=== PATIENT | male | born 1985 | race Caucasian/White ===

== ENCOUNTER 2019-09-01 14:33 | Outpatient (CLI) | payer OTHER ==
--- NOTE | 2019-09-02 08:27 | MRI Report ---
Reason: BILATERAL HAND PAIN Procedure Date: 09/01/2019 Accession Number: [id number] / [id number] Procedure: MRI - Hand RT W/O CPT Code: Final Report FULL RESULT: EXAM: RIGHT HAND MRI WITHOUT CONTRAST EXAM DATE: 09/01/2019 03:11 PM. CLINICAL HISTORY: Bilateral hand pain dorsally for 6 months. Weakness. COMPARISON: None. TECHNIQUE: Multiplanar, multisequence T1-weighted and fluid-sensitive sequences of the hand without contrast. Other: None. FINDINGS: Bones: There is an old healed fracture of the distal fifth metacarpal. There is an old ununited fracture through the mid ulnar styloid. It may have a fibrous union. No acute fractures or marrow edema. A tiny intraosseous ganglion is in the distal second metacarpal. Cartilage: The articular cartilage is unremarkable. The triangular fibrocartilage has a full-thickness, partial-width tear of the mid fibers near the radial side. The gap is 3 mm in length (4 1/9). Ligaments: The visualized collateral ligaments are intact. Tendons: A mild amount of edema surrounds the extensor carpi ulnaris tendon. No tears of the flexor or extensor tendons. Musculature: No edema or fatty atrophy. Other: No joint effusions. The subcutaneous tissues are unremarkable. IMPRESSION: 1. The marker indicating the site of pain is near the distal first metacarpal but no abnormality is seen in this region. 2. Old distal fifth metacarpal fracture. New progress 3. Full-thickness, partial-width tear of the triangular fibrocartilage. 4. Mild tendinosis of the extensor carpi ulnaris tendon. RADIA
--- NOTE | 2019-09-02 08:50 | MRI Report ---
Reason: BILATERAL HAND PAIN Procedure Date: 09/01/2019 Accession Number: [id number] / [id number] Procedure: MRI - Hand LT W/O CPT Code: Final Report FULL RESULT: EXAM: LEFT HAND MRI WITHOUT CONTRAST EXAM DATE: 09/01/2019 04:18 PM. CLINICAL HISTORY: Bilateral hand pain dorsally for 6 months. Weakness. COMPARISON: None. TECHNIQUE: Multiplanar, multisequence T1-weighted and fluid-sensitive sequences of the hand without contrast. Other: None. FINDINGS: Bones: No acute fractures. Mild osteophyte formation is in the first metacarpophalangeal joint. No marrow edema. Cartilage: The articular cartilage is unremarkable. Ligaments: The visualized collateral ligaments are intact. Tendons: The flexor and extensor tendons are unremarkable. Musculature: No edema or fatty atrophy. Other: No joint effusions. A ganglion cyst is volar to the second carpometacarpal joint. It measures 1.2 x 0.7 x 2.4 cm. Susceptibility artifact near the second metacarpophalangeal joint could indicate prior surgery in this region or foreign bodies. IMPRESSION: 1. Mild osteoarthritis of the first carpometacarpal joint. This is near the marker indicating the site of pain. RADIA
== END 2019-09-01 14:34 | disposition home or self-care (01) ==
LOC: DI 14:33
PROVIDERS: ATTEND General Practice
DX: S52.611K Displaced fracture of right ulna styloid process, subsequent encounter for closed fracture with nonunion (principal); S63.591A Other specified sprain of right wrist, initial encounter; M67.941 Unspecified disorder of synovium and tendon, right hand; M18.12 Unilateral primary osteoarthritis of first carpometacarpal joint, left hand

== ENCOUNTER 2020-01-24 18:54 | Emergency (ER) | payer OTHER ==
[2020-01-24 19:25] VITALS: BP 127/66
[2020-01-24] MEDS ORDERED: oxyCODONE/ACET 5/325 Prepack 4 PO STA (20:02)
[2020-01-24] MEDS ORDERED: BUPIVACAINE 0.5%-EPI 1:200000 PF 10 ML VIAL SUBQ STA (20:02)
--- NOTE | 2020-01-24 20:03 | ED Physician Documentation ---
PD HPI LOWER EXT INJURY - Stated complaint Stated Complaint: RT KNEE PX - Chief complaint Chief Complaint: Trauma Ext - History obtained from History obtained from: Patient - Additional information Additional information: 34-year-old gentleman, active duty in the [employer] with a long history of issues related to his right knee, initial injury 10 years ago. Subsequently has had an ACL replacement and meniscus repairs. He is been having increasing pain lately. Today he was in the shower, and as such did not have his brace on. He slipped and it felt wobbly and now has a severe increase in his pain. Review of Systems Constitutional: reports: Reviewed and negative Ears: reports: Reviewed and negative Nose: reports: Reviewed and negative Throat: reports: Reviewed and negative PD PAST MEDICAL HISTORY - Past Medical History Past Medical History: Yes Cardiovascular: None Respiratory: None Neuro: None Endocrine/Autoimmune: None GI: None : None HEENT: None Musculoskeletal: Other Derm: None Other Past Medical History: R ACL tear - Past Surgical History Past Surgical History: Yes Ortho: Other - Present Medications Home Medications: Ambulatory Orders Medication Instructions Recorded Confirmed Oxycodone HCl/Acetaminophen 1 - 2 each PO Q6H PRN #14 tablet 01/24/20 [Percocet 5-325 mg Tablet] - Allergies Allergies/Adverse Reactions: Allergies Allergy/AdvReac Type Severity Reaction Status Date / Time No Known Drug Allergies Allergy Verified 01/24/20 19:45 - Social History Does the pt smoke?: Yes Smoking Status: Current every day smoker Does the pt drink ETOH?: Yes ETOH Use: Beer Does the pt have substance abuse?: No - Immunizations Immunizations are current?: Yes - POLST Patient has POLST: No PD ED PE NORMAL - Vitals Vital signs reviewed: Yes - General General: Alert and oriented X 3, No acute distress - Extremities Extremities: Other (There is a small effusion of the right knee, no warmth or redness. He has severe pain with flexion or extension. Because of his level of pain I am unable to check meniscus or ligaments formally.) - Neuro Neuro: Alert and oriented X 3, Normal speech Results - Vitals Vitals: Vital Signs - 24 hr 01/24/20 19:22 Temperature 37 C Heart Rate 63 Respiratory 16 Rate Blood Pressure 127/66 O2 Saturation 99 Oxygen O2 Source Room air Procedures - General procedure General procedure: Informed consent the medial part of the right knee was prepped with ChloraPrep and using sterile approach 5 mL of Marcaine was instilled. Departure - Departure Disposition: 01 Home, Self Care Clinical Impression: Internal derangement of right knee Condition: Good Record reviewed to determine appropriate education?: Yes Instructions: ED Sprain Knee Collateral Ligaments Prescriptions: Oxycodone HCl/Acetaminophen [Percocet 5-325 mg Tablet] 1 - 2 each PO Q6H PRN #14 tablet PRN Reason: pain Comments: Keep the locking splint on that we gave you. Return for new or worsening symptoms. [place]. Do not drink or drive while taking Percocet. Forms: Activity restrictions
[2020-01-24] MEDS ORDERED: BUPIVACAINE 0.5% PF 10 ML VIAL SUBQ STA (20:09)
[2020-01-24] MEDS ORDERED: BUPIVACAINE 0.25% PF 30 ML VIAL SUBQ STA (20:09)
[2020-01-24] MEDS ORDERED: BUPIVACAINE 0.25%-EPI 1:200000 PF 30 ML VIAL SUBQ STA (20:09)
[2020-01-24] MEDS ORDERED: BUPIVACAINE 0.5% PF 30 ML VIAL SUBQ ONE (20:09)
--- NOTE | 2020-01-24 20:22 | XRAY Report ---
PROCEDURE: Knee 4 View RT INDICATIONS: knee pain TECHNIQUE: 3 views of the right knee(s) were acquired. COMPARISON: None. FINDINGS: Bones: ACL reconstruction changes. No fractures or dislocations. No suspicious bony lesions. Soft tissues: No joint effusion. No suspicious soft tissue calcifications. IMPRESSION: No acute finding. Reviewed by: Lincoln Rutherford MD on 01/24/2020 8:20 PM PDT Approved by: Lincoln Rutherford MD on 01/24/2020 8:20 PM PDT Station ID: [id number]
== END 2020-01-24 20:28 | disposition home or self-care (01) ==
LOC: ED 18:54
DX: M23.91 Unspecified internal derangement of right knee (principal); M25.461 Effusion, right knee; X50.1XXA Overexertion from prolonged static or awkward postures, initial encounter; Y93.E1 Activity, personal bathing and showering; Y92.002 Bathroom of unspecified non-institutional (private) residence as the place of occurrence of the external cause; F17.200 Nicotine dependence, unspecified, uncomplicated
CPT/HCPCS: 99283

== ENCOUNTER 2020-02-01 14:29 | Outpatient (CLI) | payer OTHER ==
--- NOTE | 2020-02-01 16:56 | MRI Report ---
PROCEDURE: Knee RT W/O INDICATIONS: UNSPECIFIED LOWER LEG INJURY TECHNIQUE: Noncontrast sagittal PD fast spin echo and T2 fast spin echo with fat saturation, sagittal 3-D gradie nt sequence with fat saturation; coronal T1 spin echo and PD fast spin echo with fat saturation, and axial PD fast spin echo with fat saturation through the knee. COMPARISON: Plain films of the right knee dated 01.24.20 FINDINGS: Image quality: Partially degraded by motion artifact. Menisci: Medial extrusion of the medial meniscus is present, without definite tear. Lateral meniscus is intact. Cruciate ligaments: The anterior cruciate ligament graft demonstrates moderate thinning. The posterior cruciate ligament demonstrates mild fluid signal intensity throughout. Medial structures: The medial collateral ligament appears intact. Visualized portions of the pes an serinus tendons appear normal. No abnormal bursal fluid. Lateral structures: The lateral collateral ligament, long and short heads of the biceps femoris tend on appear intact. The popliteus tendon appears normal.. Iliotibial band appears normal. Anterior structures: The quadriceps and patellar tendons appear intact. Patellar alignment is peter l. No femoral trochlear dysplasia or ventral trochlear prominence. No edema in the infrapatellar fa t pad. Bones and cartilage: No bone marrow contusions or fractures. Chronic fragmentation of the tibial tub ercle. Mild tricompartmental periarticular osteophyte formation. Moderate articular cartilage loss di ffusely overlies the weightbearing aspects of the medial and lateral compartments. There is superimpo sed high-grade articular cartilage loss overlying the posterior weightbearing and nonweightbearing as pect of the lateral femoral condyle, measuring roughly 12 mm anteroposterior by 5 mm transverse. Joint space: There is a moderate knee joint effusion. No Sanchez?s cyst. Normal appearing synovial pl icae are incidentally noted. IMPRESSION: 1. Partial thickness tearing of the anterior cruciate ligament graft. 2. Tricompartmental osteoarthritis with associated articular cartilage loss. 3. Knee joint effusion. 4. Remote [place]-Schlatter disease. Reviewed by: Jimmie Laureano MD on 02/01/2020 4:55 PM PDT Approved by: Jimmie Laureano MD on 02/01/2020 4:55 PM PDT Station ID: [id number]
== END 2020-02-01 14:30 | disposition home or self-care (01) ==
LOC: DI 14:29
DX: S83.511A Sprain of anterior cruciate ligament of right knee, initial encounter (principal); M17.11 Unilateral primary osteoarthritis, right knee; M25.461 Effusion, right knee; M92.521 Juvenile osteochondrosis of tibia tubercle, right leg

== ENCOUNTER 2020-04-24 12:28 | Outpatient (CLI) | payer OTHER | END 2020-04-24 23:59 | disposition home or self-care (01) | LOC: COV 12:28 | PROVIDERS: ATTEND Orthopaedic Surgery | DX: Z01.812 Encounter for preprocedural laboratory examination (principal); Z20.828 Contact with and (suspected) exposure to other viral communicable diseases; S83.206A Unspecified tear of unspecified meniscus, current injury, right knee, initial encounter ==

== ENCOUNTER 2020-04-27 08:50 | Day surgery (SDC) | payer OTHER ==
[~2020-04-27 08:50] MED LIST: ceFAZolin 2 GM/50 ML 2 GM/50 ML BAG IV ONE
[2020-04-27] MEDS ORDERED: DEXAMETHASONE 4 MG/ML VIAL ONE ×3 (09:12→15:03)
[2020-04-27] MEDS ORDERED: ROPIVACAINE 0.5% PF 20 ML AMPULE ONE (09:12)
[2020-04-27] MEDS ORDERED: LACTATED RINGERS 1,000 ML IV ONE ×2 (09:14→16:16)
--- NOTE | 2020-04-27 09:25 | ANESTHESIA ---
Pre-Anesthesia VS, & Labs - Diagnosis R Knee ACL Graft Rupture and Meniscal Tear - Procedure R knee Arthroscopic ACL Graft Revision, Repair Meniscal Tear Vital Signs: Temp Pulse Resp BP Pulse Ox 36.6 C 100 16 142/90 H 98 04/27/20 09:09 04/27/20 09:09 04/27/20 09:09 04/27/20 09:09 04/27/20 09:09 Height: 6 ft Weight (kg): 104 kg Body Mass Index: 31.1 BMI Classification: Obese - NPO >8 hours, Other (Liquids 0600) Home Medications and Allergies Home Medications: Ambulatory Orders Acetaminophen [Tylenol Arthritis] 1 tab PO DAILY 04/27/20 Acetaminophen [Tylenol Arthritis] 1 tab PO DAILY 04/27/20 Allergies/Adverse Reactions: Allergies Allergy/AdvReac Type Severity Reaction Status Date / Time No Known Drug Allergies Allergy Verified 04/06/20 10:02 Anes History & Medical History - Anesthetic History Anesthesia Complications: reports: No previous complications Family history of Anesthesia Complications: Denies Family history of Malignant Hyperthermia: Denies - Medical History Cardiovascular: reports: None Pulmonary: reports: None, Other (Snores) Gastrointestinal: reports: None Urinary: reports: None Neuro: reports: None Musculoskeletal: reports: Other Endocrine/Autoimmune: reports: None Skin: reports: None Smoking Status: Former smoker (Quit 2 years ago) History of Cancer?: No - Surgical History Orthopedic: ACL reconstruction, Other Exam General: Alert, Oriented x3, Cooperative, No acute distress Dental: WNL Mouth Opening: Greater than 4 Fingerbreadths Neck Mobility: Normal Mallampati classification: I Thyromental Distance: 4-6 cm Respiratory: Lungs clear, Normal breath sounds, No respiratory distress, No accessory muscle use Cardiovascular: Regular rate, Normal S1, Normal S2, No murmurs Plan Anesthesia Type: General, Femoral Block Consent for Procedure(s) Verified and Reviewed: Yes Code Status: Attempt Resuscitation ASA classification: 1-Healthy patient Is this case an emergency?: No (Discussed Anesthetic plan, consent signed)
[2020-04-27] MEDS ORDERED: ATROPINE ABBOJECT 1 MG/10 ML SYRINGE IVP PRN (09:27)
[2020-04-27] MEDS ORDERED: NALOXONE 0.4 MG/ML VIAL IVP PRN (09:27)
[2020-04-27] MEDS ORDERED: MORPHINE 2 MG/ML CARPUJECT IVP PRN (09:27)
[2020-04-27] MEDS ORDERED: ONDANSETRON 4 MG/2 ML VIAL IVP PRN ×3 (09:27→16:20)
[2020-04-27] MEDS ORDERED: ePHEDrine 50 MG/ML VIAL IVP PRN (09:27)
[2020-04-27] MEDS ORDERED: HYDROmorphone 0.5 MG/0.5 ML SYRINGE IVP PRN (09:27)
[2020-04-27] MEDS ORDERED: METOCLOPRAMIDE 10 MG/2 ML VIAL IVP PRN (09:27)
[2020-04-27] MEDS ORDERED: fentaNYL 100 MCG/2 ML VIAL IVP PRN (09:27)
[2020-04-27] MEDS ORDERED: MIDAZOLAM 2 MG/2 ML VIAL ONE ×2 (09:39→10:26)
[2020-04-27] MEDS ORDERED: LIDOCAINE-MPF 2% 5 ML VIAL ONE ×2 (09:41→10:26)
[2020-04-27] MEDS ORDERED: LACTATED RINGERS 1,000 ML IV SCH (10:00)
[2020-04-27] MEDS ORDERED: BUPIVACAINE 0.25% PF 30 ML VIAL ONE (10:08)
[2020-04-27] MEDS ORDERED: EPINEPHrine 1 MG/ML AMP ONE (10:08)
[2020-04-27] MEDS ORDERED: oxyCODONE 5 MG TABLET PO PRN ×2 (10:17→16:20)
[2020-04-27] MEDS ORDERED: EPINEPHrine 1 MG/ML AMP IVP ONE (10:24)
[2020-04-27] MEDS ORDERED: fentaNYL 100 MCG/2 ML VIAL ONE ×4 (10:26→15:42)
[2020-04-27] MEDS ORDERED: PROPOFOL 200 MG/20 ML VIAL IVP ONE ×2 (10:26→10:53)
[2020-04-27] MEDS ORDERED: BUPIVACAINE 0.25% PF 30 ML VIAL SUBQ ONE (10:26)
--- NOTE | 2020-04-27 10:26 | OPERATIVE REPORT ---
Operative Report - Other Other Information/Narrative: Date of Surgery: 28 March 2020 Pre-Op Diagnosis: Right ankle instability, anterior impingement, peroneal tendinitis Procedure: Right peroneal tenosynovectomy, distal tibia anterior osteophyte excision, modified Brostrm with internal brace Postop Diagnosis: Same Primary Surgeon: Dc Alberto Secondary Surgeon: None Complications: None Tourniquet Time: 106 minutes EBL: 10 cc Implants: Arthrex 1.35 mm DX fibertak ([id number]) x2. Arthrex internal brace Postoperative Protocol: Same day surgery discharge Splint nonweightbearing until 2 weeks At 2 weeks the splint will be removed, sutures will be removed, and he will be placed in a boot. Range of motion out of boot is okay At 6 weeks he will be allowed to start walking with a boot on At 12 weeks he can wean from the boot and advance activities as tolerated Indication For Surgery: 34-year-old male with chronic ankle instability as well as posterior lateral pain over the peroneals and anterior pain with dorsiflexion. He failed conservative treatment and surgery was discussed. The goal was to restore stability and to decrease pain. The risks, benefits, and alternatives were discussed. Risks include pain, bleeding, infection, damage to nearby structures, numbness, lack of symptom relief, implant complications, nonunion, need for further surgery, DVT, PE, stroke, and . Written consent was obtained. Procedure in Detail: The patient was met in the pre-operative hold area on the day of the procedure. The operative extremity was signed and questions were answered. The patient was brought to the operating room and a general anesthetic was administered. Supine position was used and all bony prominences were padded. Standard prepping and draping was performed. A time out confirmed patient identification, laterality, procedure, allergies, antibiotics, and images. An Esmarch was used to exsanguinate the limb and the tourniquet was elevated to 250 mmHg. A 6cm incision was made over the lateral ankle coursing in line with the fibers of the ATFL extending to the peroneal tendons. Incision was carried down to the level of the retinaculum. Full-thickness skin flaps were then elevated. I then opened the peroneal tendon sheath in line with its fibers and inspected peroneus longus and brevis. There were no tears but tenosynovitis was present and this was excised. Low-lying muscle belly was taken from the peroneus brevis. The peroneal tendons were irrigated and the sheath was closed with a running 0 Vicryl. A small full thickness window in the capsule was opened between the ATFL and AITFL 2 mm off of the fibula. A curved hemostat was placed into the joint and the capsule was opened leaving a small cuff of tissue on the fibula. The peroneal tendons were identifed and protected. The fibula cuff was then elevated subperiosteally. The joint was inspected and the anterior osteophyte was seen. The joint was protected and retracted with a Hohmann and under direct visualization an osteotome was used to take off the anterior osteophyte in its entirety. An osteophyte was seen in the margin of the fibula as well as the talus and this was taken down with a rongeur. Dorsiflexion of the ankle was to 30 degrees and no cartilage lesions were appreciated in the joint. Latham's ligament was excised with a narrow rongeur. The internal brace swivel lock was placed into the talus just off the cartilage margin heading back into the body. The anterior distal fibula bone was then prepped, creating a small trough. Two anchors were then inserted, the first at the CFL footprint and the second at the ATFL footprint. The foot was elevated from the table via the suture anchors to ensure secure fixation. The CFL suture anchor was then passed deep to superficial through the CFL and capsule. The suture from the ATFL anchor was then passed in similar fashion through the ATFL tissue and capsule in the anatomic location. The internal brace was then tensioned appropriately and drilled and inserted into the fibula. The tip of the hemostat was able to get under the brace after final fixation and there was full range of motion. All limbs were then passed proximally from deep to superficial through the periosteal layer on the fibula. The ankle was placed in neutral dorsiflexion with slight hindfoot valgus and the sutures were tied with 6 knots. The sutures were then passed distally through the extensor retinaculum to perform the Pulido modification. The retinaculum reduced nicely and knots were again tied. The ankle was then tested and noted to be stable to anterior drawer testing as well as to talar tilt testing. The wound was then irrigated copiously. Closure was then conducted using 0 Vicryl in a [id number] fashion for the deep tissue layer followed 2-0 vicryl in buried interrupted fashion for the deep dermal layer. The skin was then closed using 3-0 nylon in a mattress suture fashion. 15 mL's of 0.25% Marcaine was injected into the periwound soft tissue . The wounds were then dressed with Xeroform, plain 4x4 gauze, and wrapped in sterile Webril. They were then placed in a L and U splint at neutral dorsiflexion and approximately 5 degrees of eversion, awakened from general anesthesia without complication, brought to the Postanesthesia Care Unit for further Recovery.
[2020-04-27] MEDS ORDERED: ACETAMINOPHEN 1,000 MG/100 ML 100 ML IV ONE ×2 (11:19→15:56)
[2020-04-27] MEDS ORDERED: HYDROmorphone 1 MG/ML CARPUJECT ONE (12:06)
[2020-04-27] MEDS ORDERED: LABETALOL 5 MG/1 ML 20 ML MDV ONE (12:22)
[2020-04-27] MEDS ORDERED: SODIUM CHLORIDE 0.9% 10 ML ONE (12:27)
[2020-04-27] MEDS ORDERED: WATER FOR INJECTION,STERILE 0 ML MC ONE (12:27)
[2020-04-27] MEDS ORDERED: BACITRACIN 50,000 UNIT VIAL ONE (12:28)
[2020-04-27] MEDS ORDERED: BACITRACIN 50,000 UNIT VIAL TOP ONE (12:46)
[2020-04-27] MEDS ORDERED: KETAMINE 500 MG/10 ML VIAL ONE (13:16)
[2020-04-27] MEDS ORDERED: ONDANSETRON 4 MG/2 ML VIAL ONE ×2 (13:45→15:02)
[2020-04-27] MEDS ORDERED: KETOROLAC 30 MG/ML VIAL ONE (13:50)
--- NOTE | 2020-04-27 14:35 | XRAY Report ---
PROCEDURE: Knee 2 View RT INDICATIONS: Post Surgical TECHNIQUE: 2 views of the right knee(s) were acquired. COMPARISON: None. FINDINGS: Bones: No fractures or dislocations. No suspicious bony lesions. Tendon anchors within the distal femur and proximal tibia. Mild periarticular osteophyte formation. Soft tissues: No joint effusion. No suspicious soft tissue calcifications. IMPRESSION: Osteoarthritis. Post surgical sequelae. No acute fracture. No osseous lesion. If symptom s and/or clinical suspicion for pathology continue, further assessment with repeat plain films, or ad vanced imaging (e.g., CT, MRI, or bone scan) is recommended for further assessment. Reviewed by: Jimmie Laureano MD on 04/27/2020 2:34 PM PST Approved by: Jimmie Laureano MD on 04/27/2020 2:34 PM PST Station ID: [id number]
[2020-04-27] MEDS ORDERED: ROCURONIUM 50 MG/5 ML VIAL ONE (14:39)
[2020-04-27] MEDS ORDERED: ceFAZolin 1 GM VIAL ONE (14:50)
[2020-04-27] MEDS ORDERED: SEVOFLURANE 250 ML LIQUID INH ONE (15:09)
--- NOTE | 2020-04-27 16:30 | XRAY Report ---
PROCEDURE: Knee 2 View RT INDICATIONS: POST OP KNEE TECHNIQUE: 1 views of the right knee(s) were acquired. COMPARISON: None. FINDINGS: Bones: Postsurgical changes are noted in right knee from ACL reconstruction surgery. Right knee alig nment is anatomic. No fractures or dislocations. No suspicious bony lesions. Soft tissues: No joint effusion. No suspicious soft tissue calcifications. IMPRESSION: Postsurgical changes from right ACL reconstruction surgery with anatomic right knee alig nment. Reviewed by: Otilio Alvarado MD on 04/27/2020 4:29 PM PST Approved by: Otilio Alvarado MD on 04/27/2020 4:29 PM PST Station ID: [id number]
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
[2020-04-27 17:07] VITALS: BP 133/81
[2020-04-27] MEDS ORDERED: oxyCODONE 5 MG TABLET ONE (17:14)
--- NOTE | 2020-04-27 19:36 | ANESTHESIA POST OP EVALUATION ---
Anesthesia Post Eval - Post Anesthesia Eval Vitals: Last Vital Signs Temp 37.2 C 04/27/20 16:30 Pulse 108 H 04/27/20 17:06 Resp 14 04/27/20 17:06 BP 133/81 H 04/27/20 17:06 Pulse Ox 95 04/27/20 17:06 CV Function Including HR & BP: positive: Stable Pain Control: positive: Satisfactory Nausea & Vomiting: positive: Negative Mental Status: positive: Baseline Respiratory Status: Airway Patent Hydration Status: Satisfactory Anesthesia Complications: positive: None (Discharged home)
== END 2020-04-27 08:51 | disposition home or self-care (01) ==
LOC: SDS 08:50
PROVIDERS: ATTEND Orthopaedic Surgery
DX: S83.511A Sprain of anterior cruciate ligament of right knee, initial encounter (principal); S83.241A Other tear of medial meniscus, current injury, right knee, initial encounter; M23.41 Loose body in knee, right knee

== ENCOUNTER 2021-07-28 12:10 | Emergency (ER) | payer OTHER ==
[2021-07-28] MEDS ORDERED: CHERRY SYRUP 10 ML UDC PO ONE (12:49)
[2021-07-28] MEDS ORDERED: IPRATROPIUM/ALBUTEROL 3 ML NEB INH STA (12:49)
[2021-07-28] MEDS ORDERED: DEXAMETHASONE 10 MG/ML VIAL PO STA (12:49)
--- NOTE | 2021-07-28 12:49 | ED Physician Documentation ---
PD HPI DYSPNEA - Stated complaint Stated Complaint: SOA,COUGH - Chief complaint Chief Complaint: General - History obtained from History obtained from: Patient - History of Present Illness Timing - onset: How many days ago (3) Timing - onset during: Light activity Timing - duration: Days (3) Timing - details: Gradual onset, Still present Inciting event(s): URI Improved by: Rest Worsened by: Exertion, Coughing Associated symptoms: Cough, Wheezing, Chest pain / discomfort. No: Fever, Hemoptysis, Palpitations, Diaphoresis, Bilateral edema, Unilateral edema, Anxiety Similar symptoms before: No diagnosis Recently seen: Not recently seen - Additional information Additional information: 35-year-old male with no prior history of asthma has developed a cough and congestion over the past 3 days and have some difficulty getting a full deep breath. He states that he has noticed some of this difficulty getting a full deep breath since he was in [place] in May. At that time he remembered recalls choking on some hot wings and has had some difficulty with shortness of breath ever since. He is now began to cough up a little bit of yellow phlegm and he is come to the emergency department for evaluation. He also indicates that after this episode of choking in [place] he has developed some hives that have come and gone and he has developed some dermographism. He has never had either of these symptoms previously. He does not currently have any hives. The patient has been immunized boosted and has had COVID.He tested for Covid at home this morning it was negative. Review of Systems Constitutional: denies: Fever, Chills Eyes: denies: Decreased vision Ears: denies: Ear pain Nose: reports: Congestion Throat: denies: Sore throat Cardiac: denies: Chest pain / pressure, Palpitations, Pedal edema, Calf pain Respiratory: reports: Dyspnea, Cough, Wheezing GI: denies: Abdominal Pain, Nausea, Vomiting : denies: Dysuria, Frequency PD PAST MEDICAL HISTORY - Past Medical History Cardiovascular: None Respiratory: None, Other (Snores) Neuro: None Endocrine/Autoimmune: None GI: None : None HEENT: None Psych: None Musculoskeletal: Other Derm: None - Past Surgical History Past Surgical History: Yes Ortho: ACL reconstruction, Other - Present Medications Home Medications: Ambulatory Orders Medication Instructions Recorded Confirmed Albuterol Sulf [Ventolin Hfa 1 - 2 puffs INH Q4HR PRN #1 inhaler 07/28/21 Inhaler] Azithromycin [Zithromax] 250 mg PO DAILY #6 tablet 07/28/21 predniSONE [Deltasone] 40 mg PO DAILY 5 Days #10 tablet 07/28/21 - Allergies Allergies/Adverse Reactions: Allergies Allergy/AdvReac Type Severity Reaction Status Date / Time No Known Drug Allergies Allergy Verified 07/28/21 12:14 - Social History Does the pt smoke?: Yes Smoking Status: Former smoker (Quit 2 years ago) Does the pt drink ETOH?: Yes Does the pt have substance abuse?: No - Immunizations Immunizations are current?: Yes - POLST Patient has POLST: No PD ED PE NORMAL - Vitals Vital signs reviewed: Yes (Hypertensive mild) - General General: Alert and oriented X 3, No acute distress, Well developed/nourished - HEENT HEENT: Atraumatic, PERRL, EOMI, Ears normal, Pharynx benign - Neck Neck: Supple, no meningeal sign, No bony TTP - Cardiac Cardiac: RRR, No murmur - Respiratory Respiratory: No respiratory distress, Clear bilaterally, Other (Fine inspiratory wheeze) - Abdomen Abdomen: Soft, Non tender - Back Back: No CVA TTP, No spinal TTP - Derm Derm: Normal color, Warm and dry, No rash - Extremities Extremities: No deformity, No edema - Neuro Neuro: Alert and oriented X 3, house supervisor 2-12 intact, No motor deficit, No sensory deficit, Normal speech Eye Opening: Spontaneous Motor: Obeys Commands Verbal: Oriented GCS Score: 15 - Psych Psych: Normal mood, Normal affect Results - Vitals Vitals: Vital Signs - 24 hr 07/28/21 07/28/21 12:15 13:03 Temperature 36.9 C Heart Rate 91 90 Respiratory 20 18 Rate Blood Pressure 135/84 H O2 Saturation 96 Oxygen O2 Source Room air - Rads (name of study) Chest Radiology: Prelim report reviewed (Impression: Normal 2 view chest x-ray), EMP read indepedently, See rad report PD MEDICAL DECISION MAKING - ED course Complexity details: reviewed results, re-evaluated patient, considered differential, d/w patient ED course: 35-year-old male with cough and congestion is having a difficult time getting a full deep breath on examination he has good air movement but with a fine wheeze. He does not have focal rhonchi he does not have a focal examination for ENT infection. He has improvement with the use of a DuoNeb treatment and he is taught the use of a spacer and the inhaler. He is given a dose of dexamethasone. Patient overall has general improvement while in the emergency department. He has had a choking episode with persistent wheezing and he has now developed yellow phlegm. We will treat him with a course of prednisone Zithromax and albuterol. Departure - Departure Disposition: 01 Home, Self Care Clinical Impression: Acute asthmatic bronchitis Condition: Stable Instructions: ED Bronchitis Asthmatic Follow-Up: VARSHA KEENAN MD [Primary Care Provider] - Prescriptions: Albuterol Sulf [Ventolin Hfa Inhaler] 1 - 2 puffs INH Q4HR PRN #1 inhaler PRN Reason: Shortness Of Air/Wheezing predniSONE [Deltasone] 40 mg PO DAILY 5 Days #10 tablet Azithromycin [Zithromax] 250 mg PO DAILY #6 tablet Comments: Abad is look-alike you are having some irritation to your bronchus causing bronchospasm. It is possible this is related to the hot wings you choked on in [place]. I have E scribed medications for a bronchodilator albuterol and antibiotic a azithromycin and a steroid prednisone to [facility] in [place]. Our expectation with treatment is day by day improvement. When you have completed your treatment if you continue to have issues with shortness of breath follow-up with your primary care doctor for further management of asthma.
--- NOTE | 2021-07-28 13:57 | XRAY Report ---
PROCEDURE: Chest 2 View X-Ray INDICATIONS: cough TECHNIQUE: 2 view(s) of the chest. COMPARISON: None. FINDINGS: Surgical changes and devices: None. Lungs and pleura: No pleural effusions or pneumothorax. Lungs are clear. Mediastinum: Mediastinal contours are normal. Heart size is normal. Bones and chest wall: No suspicious bony abnormalities. Soft tissues appear unremarkable. IMPRESSION: Normal two-view chest x-ray Reviewed by: Chris Bahena MD on 07/28/2021 12:56 PM EVITA Approved by: Chris Bahena MD on 07/28/2021 12:56 PM EVITA Station ID: [id number]
[2021-07-28 14:10] VITALS: BP 161/75
== END 2021-07-28 14:11 | disposition home or self-care (01) ==
LOC: ED 12:10
DX: J45.909 Unspecified asthma, uncomplicated (principal); Z87.891 Personal history of nicotine dependence
CPT/HCPCS: 71046; 94640; 94664; 99283; 99284; A9270

== ENCOUNTER 2021-09-04 08:53 | Outpatient (CLI) | payer OTHER ==
--- NOTE | 2021-09-04 15:20 | XRAY Report ---
PROCEDURE: Elbow 3 View LT INDICATIONS: ELBOW PAIN TECHNIQUE: 3 views of the elbow were acquired. COMPARISON: None. FINDINGS: BONES/JOINT: Faint cortical lucency in the radial head on the lateral view, which may reflect Mach af fect. No acute, displaced fracture or dislocation. No appreciable joint effusion. Small olecranon ent hesophyte. SOFT TISSUES: No focal abnormality. IMPRESSION: 1.No acute osseous abnormality of the elbow. Reviewed by: Will Esparza MD on 09/04/2021 3:19 PM PDT Approved by: Will Esparza MD on 09/04/2021 3:19 PM PDT Station ID: [id number]
== END 2021-09-04 23:59 | disposition home or self-care (01) ==
LOC: DI.WOS 08:53
PROVIDERS: ATTEND Physician Assistant
DX: M25.522 Pain in left elbow (principal)

== ENCOUNTER 2021-09-19 09:09 | Outpatient (CLI) | payer OTHER ==
--- NOTE | 2021-09-19 15:29 | MRI Report ---
PROCEDURE: Elbow LT W/O INDICATIONS: ELBOW PAIN TECHNIQUE: Noncontrast coronal proton density fast spin echo and T2 fast spin echo with fat saturation, axial an d sagittal T1 spin echo and T2 fast spin echo with fat saturation through the elbow. COMPARISON: Elbow radiograph dated 09/04/2021. FINDINGS: Image quality: Diagnostic. Patient motion is noted during the study. Lateral structures: The lateral ulnar collateral ligament and radial collateral ligament both appear thickened at their epicondylar insertion. The overlying common extensor tendon also appears thicken ed with intrasubstance T2 hyperintense signal at its epicondylar insertion. Medial structures: The ulnar collateral ligament appears intact. The overlying common flexor tendon appears normal. The ulnar nerve appears normal in size and signal within the cubital tunnel. Anterior structures: The biceps and brachialis tendons both appear intact as they insert onto the pr oximal radius and ulna, respectively. No bicipitoradial bursal fluid. The median and radial neurova scular bundles appear normal; no focal muscle atrophy to suggest nerve impingement. Posterior structures: Distal triceps tendinosis and low-grade partial-thickness tear at its insertion on proximal olecranon is seen. No full-thickness tendon rupture. No olecranon bursal fluid. Bone and cartilage: No bone marrow contusions or fractures. No osteochondral injuries. IMPRESSION: 1. Finding is suggestive of lateral epicondylitis with sprain/low-grade partial thickness tear involv ing proximal lateral collateral ligaments and tendinosis and low to moderate grade partial thickness tear involving common extensor tendon origin. 2. Mild tendinosis and low-grade partial-thickness tear involving distal triceps tendon at its proxim al insertion. 3. No marrow edema. No fracture or dislocation. No significant joint effusion. Reviewed by: Otilio Alvarado MD on 09/19/2021 3:28 PM PDT Approved by: Otilio Alvarado MD on 09/19/2021 3:28 PM PDT Station ID: [id number]
== END 2021-09-19 09:10 | disposition home or self-care (01) ==
LOC: DI 09:09
PROVIDERS: ATTEND Student in an Organized Health Care Education/Training Program
DX: R93.6 Abnormal findings on diagnostic imaging of limbs (principal); S46.322A Laceration of muscle, fascia and tendon of triceps, left arm, initial encounter